=== PATIENT | male | born 1955 | race Caucasian/White ===

== ENCOUNTER 2016-08-21 10:38 | Day surgery (SDC) | payer BC ==
--- NOTE | ~2016-08-21 | EGD ---
EGD REPORT [facility] [address] [address] NAME: JAZZY POSEY : 57 STATUS : REG [facility]#: [id number] AGE: 61 ADM/REG DATE : 08/21/16 MR#: [id number] REPORT SERV DATE: 08/21/16 DICTATED BY: ESTUARDO BENNETT DATE: 08/21/16 REPORT STATUS : Draft TRANSCRIBED BY: [employer] DATE: 08/21/16 [facility] Patient Name: Jazzy Posey Date of : 1955 Attending MD: ESTUARDO BENNETT MD Procedure Date No Time: 08/21/2016 Procedure: Colonoscopy Indications: Personal history of malignant rectal neoplasm Medicines: as per anesthesia Complications: No immediate complications. Procedure: Pre-Anesthesia Assessment: - ASA Grade Assessment: II - A patient with mild systemic disease. After I obtained informed consent, the scope was passed under direct vision. Throughout the procedure, the patient's blood pressure, pulse, and oxygen saturations were monitored continuously. The PCF [id number] was introduced through the anus and advanced to the cecum, identified by appendiceal orifice and ileocecal valve. The colonoscopy was performed without difficulty. The patient tolerated the procedure. The quality of the bowel preparation was fair. Findings: Digital rectal exam revealed a 3 cm (diameter) firm rectal mass palpated 6.0 cm from the anal verge. The mass was non-circumferential. A sessile non-obstructing medium-sized mass was found in the rectum. The mass was non-circumferential. The mass measured three cm in length. at 6cm, Biopsies were taken with a cold forceps for histology. Impression: - Rectal mass 6.0 cm from the anal verge. - Likely malignant tumor in the rectum. Removal was not done. Recommendation: - Await pathology results. - Refer to a surgeon. Procedure Code(s): --- Professional --- 46087, Colonoscopy, flexible, proximal to splenic flexure; with biopsy, single or multiple Diagnosis Code(s): --- Professional --- K62.89, Other specified diseases of anus and rectum D49.0, Neoplasm of unspecified behavior of digestive system EGD REPORT [facility] [address] [place], [place] [address]. [address] NAME: JAZZY POSEY : [birth year] STATUS : REG [facility] PAT#: [id number] AGE: 61 ADM/REG DATE : 08/21/16 MR#: [id number] REPORT SERV DATE: 08/21/16 DICTATED BY: ESTUARDO BENNETT. DATE: 08/21/16 REPORT STATUS : Draft TRANSCRIBED BY: [employer] DATE: 08/21/16 Z85.048, Personal history of other malignant neoplasm of rectum, rectosigmoid junction, and anus CPT copyright 2013 [employer]. All rights reserved. The codes documented in this report are preliminary and upon senior manager mmcoe review may be revised to meet current compliance requirements. ESTUARDO BENNETT MD 08/21/2016 2:48 PM This report has been signed electronically. Number of Addenda: 0 Note Initiated On: 08/21/2016 2:01 PM Scope Withdrawal Time 0 hours 12 minutes 29 seconds [address] [facility] [place] [address]
== END 2016-08-21 23:59 | disposition home or self-care (01) ==
LOC: DMU 10:38
PROVIDERS: Internal Medicine Gastroenterology
PROC: 0DBP8ZX Excision of Rectum, Via Natural or Artificial Opening Endoscopic, Diagnostic (ICD-10-PCS; principal; 2016-08-21 12:00)
DX: D12.8 Benign neoplasm of rectum (principal); Z85.048 Personal history of other malignant neoplasm of rectum, rectosigmoid junction, and anus
CPT/HCPCS: 88305

== ENCOUNTER 2016-08-29 06:36 | Day surgery (SDC) | payer BC ==
[2016-08-25 16:45] LABS: HEMATOCRIT 43.9 % (40.0-51.0); HEMOGLOBIN 15.3 g/dL (13.6-17.8)
--- NOTE | ~2016-08-29 | OP ---
Record Of Operation [facility] [address] [place]. [address] NAME: STEPHEN ROY : 57 STATUS : REG [facility] PAT#: [id number] AGE: 61 ADM/REG DATE : 08/29/16 MR#: [id number] REPORT SERV DATE: 08/29/16 DICTATED BY: JOSE PLUNKETT DATE: 08/29/16 REPORT STATUS : Draft TRANSCRIBED BY: MODL DATE: 08/29/16 DATE OF PROCEDURE: 08/29/2016 PREOPERATIVE DIAGNOSIS: Rectal cancer. POSTOPERATIVE DIAGNOSIS: Rectal cancer. YOUTH DEVELOPMENT PROFESSIONAL: Sanjay Lopez MD. PROCEDURE: Transanal excision. COMPLICATIONS: None. IV FLUIDS: 800 mL of crystalloid. ESTIMATED BLOOD LOSS: 30 mL. FINDINGS: The patient had a mobile 1.5 x 2 cm mass in the low rectum about 6 cm from the anal verge posteriorly and slightly to the left. PROCEDURE IN DETAIL: Preoperatively, the patient was definitively identified in the holding area. It was confirmed that a signed consent was on chart. The patient was then transferred to the operating room and placed supine on the operating room table. After appropriate surgical pause, general LMA anesthesia was administered by Anesthesia team as well as perioperative antibiotics. SCDs were used for DVT prophylaxis. The patient was prepped and draped in high lithotomy position. After infusion of 30 mL of local anesthetic, a complete exam under anesthesia with small, medium, large and extra-large Hill-Valera anoscopes was performed. We also used a Hirschman anoscope and eventually used the Valera operating anoscopes to provide adequate visualization of the area. 1 cm margins around the tumor were marked and then full-thickness excision was performed until a small amount of perirectal fat was seen. We excised the specimen intact and pinned it out on a Bovie scratch pad for the pathologist. The pathologist came into the room and I carefully oriented for him. There was 1 margin that seemed to be somewhat less than a centimeter on the right lateral side and we took an extra margin there and placed ink on the final margin in that area. These two specimens were sent for permanent pathology. We then closed the defect transversely with interrupted 3-0 Vicryl sutures. Hemostasis was verified. Dry dressing was placed followed by tape. The patient was returned to the supine position back to postanesthesia care unit in stable condition. ECN/MODL Jose Plunkett MD Record Of Operation [facility] [place] [id number] [place] [address] NAME: STEPHEN ROY : 57 STATUS : REG [facility] PAT#: [id number] AGE: 61 ADM/REG DATE : 08/29/16 MR#: [id number] REPORT SERV DATE: 08/29/16 DICTATED BY: JOSE PLUNKETT DATE: 08/29/16 REPORT STATUS : Draft TRANSCRIBED BY: THAIS DATE: 08/29/16 / [id number] CC: Jose Plunkett MD NO PCP
== END 2016-08-29 17:14 | disposition home or self-care (01) ==
LOC: SDC 06:36
PROVIDERS: Surgery
PROC: 0DBQ8ZX Excision of Anus, Via Natural or Artificial Opening Endoscopic, Diagnostic (ICD-10-PCS; principal; 2016-08-29 07:45)
DX: C20 Malignant neoplasm of rectum (principal); Z98.890 Other specified postprocedural states; Z83.3 Family history of diabetes mellitus; Z90.49 Acquired absence of other specified parts of digestive tract
CPT/HCPCS: 85014; 85018; 88305; 88309; 88341; 88342; 93005; A9270-GY; J0690; J2250; J2270; J2405; J3010